=== PATIENT | female | born 1970 | race Hispanic/Latino ===

== ENCOUNTER 2016-12-08 02:01 | Emergency (ER) | payer MEDICARE, OTHER ==
[2016-12-08 02:01] VITALS: PULSE 74; BMI 36.8
[2016-12-08 02:39] VITALS: TEMP 98.8; O2SAT 100
--- NOTE | 2016-12-08 03:37 | ED PDOC ---
HPI: General Adult Time Seen by Provider: 12/08/16 02:08 Chief Complaint (Nursing): Shortness Of Breath Chief Complaint (Provider): abdominal and leg swelling History Per: Patient History/Exam Limitations: no limitations Onset/Duration Of Symptoms: Persistent Have you had recent travel within the past 21 days to any of the following countries: [place], [place], [place] or [place]?: No Current Symptoms Are (Timing): Still Present Recently: Hospitalized Additional Complaint(s): 46yo female with PMHx including CHF, AFib, cardiomyopathy, asthma, leukemia ( diagnosed in 2013 and takes chemo pills) and diabetes presents to the ED with c/ o persistent abdominal and leg swelling. Patient states she was discharged from [facility] today after being admitted with a diagnosis of CHF. Patient states she was not ready to be discharged and notes she is having difficulty breathing and walking. States she has intermittent chest pain as well. Denies fever, chills, n/v/d. Of note, upon review of old charts patient has demonstrated some drug seeking behavior in the past. Past Medical History Reviewed: Historical Data, Nursing Documentation, Vital Signs Vital Signs: Last Vital Signs Temp 98.8 F 12/08/16 02:35 Pulse 80 12/08/16 06:11 Resp 18 12/08/16 06:11 BP 98/63 L 12/08/16 06:11 Pulse Ox 100 12/08/16 06:51 - Medical History PMH: Asthma, Atrial Fibrillation, CHF, Diabetes, HTN, Malignancy (Leukemia ) Denies: Chronic Kidney Disease Other PMH: cardiomyopathy - Surgical History Other surgeries: open-heart surgery - Family History Family History: States: No Known Family Hx - Social History Current smoker - smoking cessation education provided: No Alcohol: None Drugs: Denies - Immunization History Hx Tetanus Toxoid Vaccination: No Hx Influenza Vaccination: No Hx Pneumococcal Vaccination: No - Home Medications Home Medications: Ambulatory Orders Medication Instructions Recorded Metformin Hydrochloride [Metformin] 1,000 mg PO BID 11/08/14 Aspirin [Aspirin Low Dose] 81 mg PO DAILY 06/22/15 Furosemide 80 mg PO BID 06/22/15 Levothyroxine Sodium [Levothroid] 25 mcg PO DAILY 06/22/15 Potassium Chloride [K-Dur 20] 20 meq PO DAILY 06/22/15 Atenolol [Tenormin] 25 mg PO DAILY 11/30/16 Ferrous Sulfate [Feosol] 325 mg PO BID 11/30/16 Magnesium Oxide [Mag-Ox] 400 mg PO BID 11/30/16 Nilotinib HCl [Tasigna] 300 mg PO BID 11/30/16 Pantoprazole [Protonix] 40 mg PO DAILY 11/30/16 Warfarin [Coumadin] 4 mg PO DAILY #30 tab 12/07/16 - Allergies Allergies/Adverse Reactions: Allergies Allergy/AdvReac Type Severity Reaction Status Date / Time No Known Allergies Allergy Verified 11/29/16 22:56 Review of Systems ROS Statement: Except As Marked, All Systems Reviewed And Found Negative Constitutional: Positive for: Other (difficulty walking ). Negative for: Fever , Chills Cardiovascular: Positive for: Chest Pain, Other (abdominal and leg swelling ) Respiratory: Positive for: Shortness of Breath Gastrointestinal: Negative for: Nausea, Vomiting, Diarrhea Physical Exam - Reviewed Nursing Documentation Reviewed: Yes Vital Signs Reviewed: Yes - Physical Exam Appears: Positive for: Well, No Acute Distress Head Exam: Positive for: ATRAUMATIC, NORMAL INSPECTION, NORMOCEPHALIC Skin: Positive for: Normal Color, Warm, Dry Eye Exam: Positive for: Normal appearance, EOMI, PERRL ENT: Positive for: Normal ENT Inspection Neck: Positive for: Normal, Painless ROM, Supple Cardiovascular/Chest: Positive for: Irregularly Irregular. Negative for: Murmur Respiratory: Positive for: Rhonchi (trace b/l ). Negative for: Respiratory Distress Gastrointestinal/Abdominal: Positive for: Normal Exam, Soft. Negative for: Tenderness Back: Positive for: Normal Inspection. Negative for: L CVA Tenderness, R CVA Tenderness Extremity: Positive for: Normal ROM, Pedal Edema (b/l ), Swelling (swelling from the hip down b/l ). Negative for: Tenderness, Deformity Neurologic/Psych: Positive for: Alert, Oriented - Laboratory Results Result Diagrams: 12/08/16 03:59 12/08/16 03:59 - ECG ECG: Positive for: Interpreted By Me, Viewed By Me ECG Rhythm: Positive for: Atrial Fibrillation (at 101 bpm ) O2 Sat by Pulse Oximetry: 100 Pulse Ox Interpretation: Normal (RA) Medical Decision Making Medical Decision Makin: Impression: leg swelling w/ SOB and chest pain; r/o CHF ro pneumonia Plan: EKG Labs CXR Lasix Lasix 40mg IV reassess pt resting in bed in NAD. comfortably sleeping. 0556: CXR shows no pneumonia with mild CHF. BUN and creatinine are at baseline and pro-BNP is unchanged compared to yesterday. Patient will be discharged with diagnosis of CHF. Instructed to f/u w/ primary doctor and md senior research scientist in 1-2 days. On old chart review, patient was instructed to take coumadin at home and have an INR tomorrow when she was discharged from [facility] yesterday following hospitalization. Re-emphasized need for patient to take coumadin and have INR performed tomorrow. Patient requesting narcotics despite sleeping through ED stay. No respiratory distress or signs of pain. Provider strongly advised need for patient to f/u and be compliant with medications given upon d/ c yesterday. Recommended Tylenol for pain as needed. Return to the ED with any worsening or concerning symptoms. Scribe Attestation: Documented by Jordin Seay acting as a scribe for Damian Swan MD. Provider Scribe Attestation: All medical record entries made by the Scribe were at my direction and personally dictated by me. I have reviewed the chart and agree that the record accurately reflects my personal performance of the history, physical exam, medical decision making, and the department course for this patient. I have also personally directed, reviewed, and agree with the discharge instructions and disposition. Disposition - Clinical Impression Clinical Impression: Chronic congestive heart failure - Patient ED Disposition Is Patient to be Admitted: No Counseled Patient/Family Regarding: Studies Performed, Diagnosis, Need For Followup - Disposition Disposition: Routine/Home Disposition Time: 04:56 Condition: IMPROVED Additional Instructions: follow up with your primary doctor and md senior research scientist in 1-2 days take your medications as prescribed upon discharge from the hospital return to the ED With any worsening or concerning symptoms Instructions: Heart Failure (ED)
[2016-12-08] MEDS ORDERED: Oxycodone/Acetaminophen 5/325 mg Tab PO ONE (03:55)
[2016-12-08 04:12] LABS: ALB/GLOB RATIO 0.9 (1.0-2.1); BILIRUBIN,TOTAL 0.3 mg/dl (0.2-1.3); CALCIUM 7.9 mg/dL (8.4-10.2); TOTAL PROTEIN 6.4 G/DL (6.3-8.2)
[2016-12-08 04:22] LABS: POTASSIUM 5.2 MMOL/L (3.6-5.0)
[2016-12-08 04:23] LABS: BASO # 0.1 K/uL (0.0-0.2); EOS # 0.3 K/uL (0.0-0.7); EOS % 3.4 % (0.0-4.0); HEMATOCRIT 34.1 % (34.0-47.0); LYMPH # 0.7 K/uL (1.0-4.3); LYMPH % 8.5 % (20.0-40.0); MEAN CELL VOLUME 92.5 fl (81.0-99.0); MEAN CORPUSCULAR HEMOGLOBIN 30.7 pg (27.0-31.0); MEAN CORPUSCULAR HGB CONC 33.2 g/dL (33.0-37.0); MEAN PLATELET VOLUME 9.6 fl (7.2-11.7); MONO # 0.6 K/uL (0.0-0.8); MONO % 7.9 % (0.0-10.0); NEUT # 6.1 K/uL (1.8-7.0); NEUT % 79.2 % (50.0-75.0); NRBC % 0.1 % (0.0-0.0); WHITE BLOOD COUNT 7.7 K/uL (4.8-10.8)
[2016-12-08 04:24] VITALS: RESP 18
[2016-12-08 06:11] VITALS: BP 98/63; PULSE 80
--- NOTE | 2016-12-08 11:43 | RAD ---
HISTORY: chf COMPARISON: Comparison made with prior study 11/06/2013. TECHNIQUE: Chest PA and lateral FINDINGS: LUNGS: Mild central pulmonary vascular congestive changes. PLEURA: Questionable artifact versus pleural thickening and/or loculated pleural fluid along the left lobe mid to lower lateral bill thorax CARDIOVASCULAR: Interval sternotomy and aortic valve replacement. Heart appears mildly enlarged OSSEOUS STRUCTURES: No significant abnormalities. VISUALIZED UPPER ABDOMEN: Normal. OTHER FINDINGS: None. IMPRESSION: Interval sternotomy with aortic valve replacement. Heart appears mildly enlarged. Mild vascular congestive changes Questionable artifact versus pleural thickening and/or loculated pleural fluid along the left lobe mid to lower lateral bill thorax. Follow-up CT scan is suggested. Note that this report was placed in PA review folder for followup.
--- NOTE | 2016-12-08 22:36 | CARD ---
APPROVED REPORT EKG Measurement Heart [id number] <Conclusion> Atrial fibrillation with rapid ventricular response with premature ventricular or aberrantly conducted complexes Low voltage QRS Nonspecific T wave abnormality Abnormal ECG
== END 2016-12-08 06:11 | disposition home or self-care (01) ==
LOC: H.ER 02:01
DX: I50.22 Chronic systolic (congestive) heart failure (principal); R60.0 Localized edema; R07.9 Chest pain, unspecified; I42.9 Cardiomyopathy, unspecified; I10 Essential (primary) hypertension; I48.91 Unspecified atrial fibrillation; I50.9 Heart failure, unspecified; E11.9 Type 2 diabetes mellitus without complications; J45.909 Unspecified asthma, uncomplicated; Z79.01 Long term (current) use of anticoagulants; Z79.82 Long term (current) use of aspirin; Z79.84 Long term (current) use of oral hypoglycemic drugs; Z79.899 Other long term (current) drug therapy; Z95.2 Presence of prosthetic heart valve; C95.90 Leukemia, unspecified not having achieved remission
CPT/HCPCS: 71020; 80053; 83880; 85025; 93005; 96374; 99284; J1940